=== PATIENT | male | born 1995 | race Two or more races ===

== ENCOUNTER 2017-01-24 15:14 | Emergency (ER) | payer OTHER ==
[~2017-01-24] VITALS: Ht 160 cm; Wt 63.5 kg
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
--- NOTE | 2017-01-24 15:28 | NUR ---
DR PLASENCIA AT BEDSIDE FOR EVAL.
[2017-01-24] MEDS ORDERED: ACETAMINOPHEN ES 500 MG TABLET PO ONE (15:30)
[2017-01-24] MEDS ORDERED: ACETAMINOPHEN ES 500 MG TABLET ONE (15:47)
--- NOTE | 2017-01-24 16:58 | NUR ---
DR PLASENCIA AT BEDSIDE FOR LAC REPAIR.
[2017-01-24] MEDS ORDERED: HYDROCODONE/APAP 5/325MG 1 EACH TABLET ONE (17:18)
[2017-01-24] MEDS ORDERED: HYDROCODONE/APAP 5/325MG 1 EACH TABLET PO ONE (17:30)
--- NOTE | 2017-01-24 17:35 | NUR ---
MEDICALY CLEARED FOR BOOKING. WOUND CARE PROVIDED. D/C TO PD IN STABLE CONDITION.
[2017-01-24 17:39] VITALS: BP 128/84
== END 2017-01-24 17:39 ==
LOC: ER 15:16
DX: S62.201A Unspecified fracture of first metacarpal bone, right hand, initial encounter for closed fracture (principal); S81.852A Open bite, left lower leg, initial encounter; S61.452A Open bite of left hand, initial encounter; S61.451A Open bite of right hand, initial encounter; W54.0XXA Bitten by dog, initial encounter; Y93.89 Activity, other specified; Y92.89 Other specified places as the place of occurrence of the external cause; Y99.8 Other external cause status
CPT/HCPCS: 12002; 29125; 73120 ×2; 73560; 99284; A4606; A6403 ×2; Z7610